=== PATIENT | female | born 1940 | race Caucasian/White ===

== ENCOUNTER 2016-12-07 11:50 | Observation (INO) | payer MEDICARE, MEDICAID ==
[~2016-12-07 11:50] MED LIST: ADVAIR 2501 DISK W/D; ADVAIR 25028 BLISTER INH; ADVAIR 50028 BLISTE1 INH; ADVAIR 50028 BLISTER INH; ADVAIR HFA 115-12 GM IH; ALAWAY10 M1 EACH EYE; ALBUTEROL0.63 MG/1 INH; ALBUTEROL0.63 MG/3 IH; ALBUTEROL0.83 MG/ML INH; ALBUTEROL17 GM; ALBUTEROL17 GM INH; ALEVE220 MG PO; ALLEGRA-D1 TAB.SR .; ALLERGY RELIEF10 M2 PO; AMLODIPINE BESY10 M1 PO; ARICEPT10 MG; ARICEPT10 MG PO; ASPIRIN325 M3 PO; AVANDIA8 MG; BABY ASPIRIN81 MG PO; BACTRIM DS1 TAB PO; BAYER ASPIRIN325 MG PO; BENAZEPRIL HCL40 MG PO; BENEFIBER PO; BIOTENE PO; CALCIUM500 MG PO; CALCIUM600 MG PO; CALMOSEPTINE OI71 GM TP; CARBIDOPA-LEVO1 EAC9 PO; CELEXA40 MG PO; CENTRUM SILVER1 TA PO; CERTAVITE SR-A1 EACH PO; CERTAVITE-LUTE1 EAC2 PO; CITALOPRAM HBR40 MG PO; CITRUCEL POWDE454 GM PO; COLACE100 M1 PO; COLACE100 MG PO; CORTISONE28 GM TOP; COUGH DROPS1 EAC1 MM; CRESTOR5 MG PO; DILTIAZEM 24HR120 M1 PO; DILTIAZEM HCL120 M1 PO; DITROPAN5 MG PO; DULERA 100 MCG/13 GM IH; DUONEB 2.5-0.5 M3 ML; FEROSUL325 M1 PO; FEROSUL325 MG PO; FERROUS SULFATE PO; FISH OIL 1,0001 CA1 PO; FISH OIL 11000 MG/CA PO; FLONASE16 GM NS; FUROSEMIDE20 MG; GABAPENTIN300 MG PO; GEMFIBROZIL600 MG; GLUCAGON1 MG/KIT IM; GLUCERNA HUNGE340 ML PO; GLUCERNA237 ML PO; GLUCOPHAGE500 MG PO; GLUCOSE1 EACH PO; GLUCOSE4 GM PO; GUAIFENESIN200 M3 PO; GUAIFENESIN400 MG PO; HALLS3.2 M1 PO; HUMALOG100 U/ML; HUMALOG100 U/ML SQ; HUMULIN N100 U/ML; HUMULIN R100 U/ML; HUMULIN R100 U/ML SQ; HYDROCHLOROTH12.5 MG PO; HYDROCHLOROTHIA25 M1 PO; HYDROCODON-ACE1 EAC7 PO; HYDROCORTISONE30 G2 APL; HYDROCORTISONE30 G6 TOP; IMODIUM A-D2 M3 PO; IRON325 M1 PO; ISOSORBIDE MONO30 M4 PO; KLOR-CON 1010 MEQ PO; LANTUS100 U/ML SC; LASIX20 M1 PO; LASIX20 MG PO; LEVEMIR FL100 UNIT/2 SC; LEVEMIR100 U/M SQ; LEVEMIR100 UNITS/ SC; LEVOTHROID25 MCG PO; LEVOTHYROXINE100 MCG PO; LEXAPRO20 MG; LIDODERM30 EA TP; LIPITOR40 MG; LISINOPRIL40 MG; LOPID600 MG PO; LOTENSIN40 M1 PO; LOTENSIN40 MG PO; LOVENOX40 MG/0.4 SQ; MACROBID 100 M100 M1 PO; MAPAP325 M2 PO; MAPAP500 M3 PO; MEDI-PATCH WIT1 EACH TP; METFORMIN HCL500 M3 PO; MILK OF MA400 MG/5 M PO; MILK OF MAGNESIA PO; MIRALAX17 G2 PO; MUCINEX600 MG; MUCINEX600 MG PO; NASONEX17 GM; NASONEX17 GM NS; NEURONTIN300 MG PO; NORCO 5/325 TAB1 TAB PO; NORVASC10 M2 PO; NORVASC10 MG PO; NORVASC5 MG PO; NOVOFINE AUTOC1 EACH MC; NOVOLIN N100 U/ML SQ; NOVOLIN R100 U/ML SQ; NOVOLOG FL100 UNIT/2; NOVOLOG100 U/M SQ; NOVOLOG100 UNIT/2 SC; NOVOLOG100 UNITS/ SC; NYAMYC15 GM TOP; OXYGEN; PEPCID20 MG PO; PERCOCET 5-3251 EACH PO; PERCOCET 5MG/AP1 TA3 PO; PLAVIX75 M1 PO; POTASSIUM CHLO10 MEQ; POTASSIUM CHLO10 MEQ PO; PRILOSEC OTC20 MG; PROAIR RESPICL90 MCG PO; PROTONIX40 M1 PO; PROTONIX40 MG PO; PROVENTIL0.83 MG/ML; PROVENTIL17 GM IH; RANITIDINE HCL150 MG PO; ROBITUSSIN15 MG/5 M1 PO; SALINE NASAL SP30 M1; SENOKOT8.6 M1 PO; SEROQUEL25 MG PO; SIMVASTATIN40 MG PO; SPIRIVA18 MCG; SYNTHROID100 MC1 PO; TAMIFLU PO; THERA-M1 TAB PO; TOLTERODINE TART2 M3 PO; TOPROL XL25 MG; TOPROL XL25 MG PO; TOVIAZ4 MG PO; TYLENOL EXTRA500 MG PO; TYLENOL325 MG PO; ULTRAM50 M1 PO; VENTOLIN HFA18 GM INH; VISINE ALLERGY30 ML OP; VITAMIN B12-FO1 EAC1 PO; VITAMIN D-1000 UNIT1 PO; VITAMIN D1000 UNI3 PO; ZOFRAN ODT4 MG PO; ZOFRAN4 MG PO; [UNRECOGNIZED DRUG - OTHER] PO; [UNRECOGNIZED DRUG - OTHER] TOP
[2016-12-07] MEDS ORDERED: IPRATROPIU0.2 MG/1 M INH (11:57)
[2016-12-07] MEDS ORDERED: ALBUTEROL2.5 MG/0.1 INH ×2 (11:58→12:14)
[2016-12-07] MEDS ORDERED: VITAMIN D31000 UNI4 PO (11:59)
[2016-12-07] MEDS ORDERED: LEVEMIR FL100 UNIT/2 PO (12:00)
[2016-12-07] MEDS ORDERED: LOTENSIN20 M1 PO (12:00)
[2016-12-07] MEDS ORDERED: ULTRAM50 M1 PO ×2 (12:00→12:03)
[2016-12-07] MEDS ORDERED: NAPROXEN250 M1 PO (12:01)
[2016-12-07] MEDS ORDERED: ICY HOT1 EAC1 TP (12:01)
[2016-12-07] MEDS ORDERED: [UNRECOGNIZED DRUG - OTHER] TP (12:02)
[2016-12-07] MEDS ORDERED: DOCUSATE SODIU100 M2 PO (12:02)
[2016-12-07] MEDS ORDERED: NORVASC5 M2 PO (12:03)
[2016-12-07] MEDS ORDERED: NOVOLOG FL100 UNIT/2 SC ×4 (12:03→12:12)
[2016-12-07] MEDS ORDERED: PROTONIX40 M2 PO (12:03)
[2016-12-07] MEDS ORDERED: NYSTATIN15 G1 TP (12:04)
[2016-12-07] MEDS ORDERED: MILK OF MAGNESIA PO ×2 (12:04→12:16)
[2016-12-07] MEDS ORDERED: MIRALAX17 G2 PO ×2 (12:04→12:08)
[2016-12-07] MEDS ORDERED: CATAPRES0.1 M1 PO (12:05)
[2016-12-07] MEDS ORDERED: TYLENOL EXTRA500 M1 PO (12:05)
[2016-12-07] MEDS ORDERED: VICKS VAPORUB170 G1 TP (12:05)
[2016-12-07] MEDS ORDERED: SENOKOT-S TABL1 EACH PO (12:06)
[2016-12-07] MEDS ORDERED: PHENASEPTIC177 ML MM (12:06)
[2016-12-07] MEDS ORDERED: HYDROCHLOROTHIA25 M1 PO (12:07)
[2016-12-07] MEDS ORDERED: ADVAIR 50028 BLISTE1 INH (12:07)
[2016-12-07] MEDS ORDERED: DILTIAZEM ER240 M5 PO (12:08)
[2016-12-07] MEDS ORDERED: CITALOPRAM HBR40 M1 PO (12:09)
[2016-12-07] MEDS ORDERED: NEURONTIN300 M1 PO (12:09)
[2016-12-07] MEDS ORDERED: LASIX20 M1 PO (12:09)
[2016-12-07] MEDS ORDERED: SINEMET 25-1001 EAC1 PO (12:09)
[2016-12-07] MEDS ORDERED: OCEAN104 ML (12:09)
[2016-12-07] MEDS ORDERED: ZOFRAN ODT4 MG SL (12:10)
[2016-12-07] MEDS ORDERED: ZADITOR5 M2 OP (12:10)
[2016-12-07] MEDS ORDERED: FISH OIL EC 1,1 EACH PO (12:13)
[2016-12-07] MEDS ORDERED: FOLIC ACID-VIT1 EAC1 PO (12:13)
[2016-12-07] MEDS ORDERED: SYNTHROID100 MC1 PO (12:13)
[2016-12-07] MEDS ORDERED: ARICEPT10 M2 PO (12:14)
[2016-12-07] MEDS ORDERED: TOLTERODINE TART2 M3 PO (12:14)
[2016-12-07] MEDS ORDERED: ISOSORBIDE MONO30 M4 PO (12:14)
[2016-12-07] MEDS ORDERED: ASPIRIN325 M3 PO (12:15)
[2016-12-07] MEDS ORDERED: TYLENOL325 M2 PO (12:15)
[2016-12-07] MEDS ORDERED: PLAVIX75 M1 PO (12:15)
[2016-12-07] MEDS ORDERED: ROSUVASTATIN CA10 MG PO (12:15)
[2016-12-07] MEDS ORDERED: FEOSOL325 M1 PO (12:15)
[2016-12-07] MEDS ORDERED: BISCOLAX10 MG PR (12:16)
[2016-12-07] MEDS ORDERED: ENEMEEZ283 MG/5 M PR (12:16)
[2016-12-07] MEDS ORDERED: GLUCOSE33 GM PO (12:17)
[2016-12-07] MEDS ORDERED: GLUCAGEN1 MG/1 ML IM (12:18)
[2016-12-07 12:34] LABS: CARBON DIOXIDE-VENOUS 30 mmol/L (21-33); CREATININE 1.59 mg/dl (0.67-1.17); GLUCOSE 200 mg/dl (65-120); POTASSIUM 4.8 mmol/L (3.5-5.3); SODIUM 136 mmol/L (135-146); eGFR VALUE FOR BLACK 36 mL/Min
[2016-12-07 12:43] LABS: BASO % 0.2 % (0-2); EOS % 2.7 % (0-7); EOSINOPHIL ABSOLUTE COUNT 0.2 tho/cmm (0.0-0.7); HCT-HEMATOCRIT 36.3 % (34.0-49.0); IMMATURE GRANULOCYTES ABSOLUTE 0.01 tho/cmm (0-0.03); IMMATURE GRANULOCYTES PERCENT 0.2 % (0-0.3); LYMPH % 21.5 % (20-45); LYMPH ABSOLUTE COUNT 1.2 tho/cmm (0.8-4.5); MCH (MEAN CORPUSCULAR HGB) 29.7 pg (28.0-32.0); MCHC MEAN CORPUSCULAR HGB CONC 33.1 % (32.0-36.0); MCV (MEAN CELL VOLUME) 89.9 fl (82.0-96.0); MEAN PLATELET VOLUME 10.2 cmc (9.4-12.4); MONO % 9.7 % (0-12); MONOCYTE ABSOLUTE COUNT 0.5 tho/cmm (0.0-1.2); NEUTROPHIL ABSOLUTE COUNT 3.6 tho/cmm (1.6-8.0); NEUTROPHIL-AUTOMATED 3.6 tho/cmm (1.6-8.0); NEUTROPHILS % 65.7 % (40-80); PLATELET COUNT 178 tho/cmm (150-450); RED BLOOD COUNT 4.04 mil/cmm (4.00-5.20); RED CELL DISTRIBUTION WIDTH 14.1 % (12.4-16.4); WHITE BLOOD COUNT 5.5 tho/cmm (4.0-10.0)
[2016-12-07 12:44] LABS: PROTHROMBIN TIME 11.4 SECONDS (9.0-13.6)
[2016-12-07 12:56] LABS: ALB/GLOB RATIO 0.8 (0.8-2.0); ALBUMIN 3.1 g/dl (3.5-5.0); ALKALINE PHOSPHATASE 50 U/L (33-138); ALT/SGPT 10 U/L (12-78); AST/SGOT 19 U/L (10-40); BILIRUBIN,TOTAL 0.2 mg/dl (0-1.5); BLOOD UREA NITROGEN 39 mg/dl (6-24); CALCIUM 8.8 mg/dl (8.5-10.5); CHLORIDE 101 mmol/l (96-110)
[2016-12-07 12:57] LABS: ANION GAP 10 mmol/L (0-20)
[2016-12-07 13:15] LABS: ESR-ERYTHROCYTE SED RATE 68 mm/hr (0-30)
[2016-12-07 13:22] LABS: URINE BILIRUBIN NEGATIVE (NEG); URINE BLOOD NEGATIVE (NEG); URINE GLUCOSE (UA) NEGATIVE (NEG); URINE KETONE NEGATIVE (NEG); URINE LEUKOCYTE ESTERASE NEGATIVE (NEG); URINE NITRITE NEGATIVE (NEG); URINE PH 6.5 (5.0-8.0); URINE PROTEIN MODERATE (NEG)
[2016-12-07 13:23] LABS: URINE APPEARANCE CLEAR; URINE COLOR YELLOW
[2016-12-07 13:34] LABS: URINE EPITHELIAL CELLS 0-4 /[HPF] (0-10); URINE RBC 0-1 /[HPF] (0-5)
[2016-12-08 06:45] LABS: ANION GAP 11 mmol/L (0-20); BLOOD UREA NITROGEN 32 mg/dl (6-24); CALCIUM 8.7 mg/dl (8.5-10.5); CARBON DIOXIDE-VENOUS 26 mmol/L (22-32); CHLORIDE 108 mmol/l (96-110); CREATININE 1.14 mg/dl (0.50-1.10); POTASSIUM 4.2 mmol/L (3.7-5.1); SODIUM 141 mmol/L (135-145); eGFR VALUE FOR BLACK 54 mL/Min
[2016-12-08 06:46] LABS: GLUCOSE 75 mg/dL (70-110)
[2016-12-08] MEDS ORDERED: NEURONTIN100 M1 PO (13:43)
[2016-12-08] MEDS ORDERED: ULTRAM50 M1 PO (13:44)
== END 2016-12-08 14:10 ==
LOC: EDMED 11:50 → EMR2 14:15 → CAR1 16:20
PROVIDERS: Emergency Medicine; ADMIT Internal Medicine
DX: M62.81 Muscle weakness (generalized) (principal); R79.89 Other specified abnormal findings of blood chemistry; N17.9 Acute kidney failure, unspecified; F03.90 Unspecified dementia, unspecified severity, without behavioral disturbance, psychotic disturbance, mood disturbance, and anxiety; J44.9 Chronic obstructive pulmonary disease, unspecified; I65.23 Occlusion and stenosis of bilateral carotid arteries; I10 Essential (primary) hypertension; Z86.73 Personal history of transient ischemic attack (TIA), and cerebral infarction without residual deficits; R41.82 Altered mental status, unspecified; G47.33 Obstructive sleep apnea (adult) (pediatric); Z99.89 Dependence on other enabling machines and devices; Z79.899 Other long term (current) drug therapy
CPT/HCPCS: G0378; G8987-GO-CI; G8988-GO-CI; G8989-GO-CI; J1815; J7030; P9612